=== PATIENT | male | born 1975 | race Caucasian/White ===

== ENCOUNTER 2018-01-16 21:52 | Emergency (ER) | payer SELFPAY, OTHER ==
[2018-01-17] MEDS: GASTROGRAFIN SOLUTION 30ML PO ×2 (01:20→01:50)
[2018-01-17 01:23] LABS: BASO # 0.1 10^3/uL (0.0-0.2); BASO % 0.4 % (0.0-1.0); EOS % 0.3 % (0.0-3.0); HEMATOCRIT 50.8 % (42.0-52.0); HEMOGLOBIN 17.5 g/dl (13.5-17.5); IMMATURE GRANULOCYTE % 0.3 % (0-3.0); LYMPH # 2.4 10^3/uL (1.5-4.5); LYMPH % 20.9 % (24.0-44.0); MEAN CORPUSCULAR HEMOGLOBIN 31.5 pg (27.0-33.0); MEAN CORPUSCULAR HGB CONC 34.4 g/dl (32.0-36.5); MEAN CORPUSCULAR VOLUME 91.4 fl (80.0-96.0); MONO # 1.4 10^3/uL (0.0-0.8); MONO % 12.3 % (0.0-5.0); NEUTROPHILS # 7.5 10^3/uL (1.8-7.7); NEUTROPHILS % 65.8 % (36.0-66.0); PLATELET COUNT, AUTOMATED 181 10^3/uL (150-450); RED BLOOD COUNT 5.56 10^6/uL (4.30-6.10); RED CELL DISTRIBUTION WIDTH 12.8 % (11.5-14.5); WHITE BLOOD COUNT 11.3 10^3/uL (4.0-10.0)
[2018-01-17] MEDS: ONDANSETRON 4MG/2ML VIAL (J2405) IV (01:36)
[2018-01-17 01:41] LABS: ALBUMIN 3.9 GM/DL (3.2-5.2); ALBUMIN/GLOBULIN RATIO 0.74 (1.00-1.93); ALKALINE PHOSPHATASE 79 U/L (45-117); ALT/SGPT 35 U/L (12-78); ANION GAP 6 MEQ/L (8-16); AST/SGOT 32 U/L (7-37); BILIRUBIN,DIRECT 0.4 MG/DL (0.0-0.2); BILIRUBIN,TOTAL 1.2 MG/DL (0.2-1.0); BLOOD UREA NITROGEN 7 MG/DL (7-18); CALCIUM LEVEL 9.6 MG/DL (8.5-10.1); CARBON DIOXIDE LEVEL 31 MEQ/L (21-32); CHLORIDE LEVEL 97 MEQ/L (98-107); CREATININE FOR GFR 1.16 MG/DL (0.70-1.30); GLOMERULAR FILTRATION RATE > 60.0 (>60); GLUCOSE, FASTING 102 MG/DL (70-100); LIPASE 73 U/L (73-393); POTASSIUM SERUM 3.9 MEQ/L (3.5-5.1); SODIUM LEVEL 134 MEQ/L (136-145); TOTAL PROTEIN 9.2 GM/DL (6.4-8.2)
[2018-01-17] MEDS: NS 1,000 ML IV (01:42)
[2018-01-17] MEDS: KETOROLAC 30 MG/ML VIAL (J1885) IV (01:43)
[2018-01-17 01:45] LABS: LACTIC ACID SEPSIS PROTOCOL 2.2 MMOL/L (0.4-2.0)
[2018-01-17] MEDS ORDERED: ISOVUE-370 76% 100ML VIAL (Q9967) As Ordered (02:25)
[2018-01-17] MEDS: predniSONE 20 MG TAB PO (05:17)
[2018-01-17] MEDS: METOCLOPRAMIDE INJ 10MG/2ML VIAL (J2765) IV (05:19)
== END 2018-01-17 05:30 | disposition home or self-care (01) ==
LOC: M ED 21:52
DX: K52.9 Noninfective gastroenteritis and colitis, unspecified (principal); J40 Bronchitis, not specified as acute or chronic; K50.90 Crohn's disease, unspecified, without complications; F17.210 Nicotine dependence, cigarettes, uncomplicated; Z88.8 Allergy status to other drugs, medicaments and biological substances
CPT/HCPCS: Q9963

== ENCOUNTER 2018-05-30 10:21 | Emergency (ER) | payer MEDICAID, SELFPAY ==
[2018-05-30] MEDS: CYCLOBENZAPRINE 10 MG TAB PO ×2 (10:50)
[2018-05-30] MEDS: methylPREDNISolone INJ 125 MG/2 ML VIAL (J2930) IM ×2 (10:51)
[2018-05-30] MEDS: MORPHINE 10 MG/ML 1ML VIAL (J2270) IM ×2 (10:51)
== END 2018-05-30 11:24 | disposition home or self-care (01) ==
LOC: M ED 10:21
DX: M54.42 Lumbago with sciatica, left side (principal); I10 Essential (primary) hypertension; Z87.19 Personal history of other diseases of the digestive system; Z88.8 Allergy status to other drugs, medicaments and biological substances; F17.210 Nicotine dependence, cigarettes, uncomplicated
CPT/HCPCS: J2930

== ENCOUNTER → 2018-11-01 | Outpatient (REF) | payer OTHER, MEDICAID ==
[~2018-11-01] MED LIST: CYCL10TA PO; IBUP200T45 PO; PRED20TA PO; REGL10TA6 PO; ZOFR4TAB14 PO
[2018-11-01 19:20] LABS: INR 1.13; PROTHROMBIN TIME 14.7 SECONDS (12.1-14.4)
[2018-11-02 12:08] LABS: HEPATITIS B SURFACE ANTIBODY POSITIVE (POSITIVE); HEPATITIS B SURFACE ANTIGEN NEGATIVE (NEGATIVE); HIV 1&2 SCREEN CENTAUR NEGATIVE (NEGATIVE)
[2018-11-03 08:57] LABS: HEPATITIS A IgG TOTAL Negative (Negative); HEPATITIS B CORE ANTIBODY IGG Negative (Negative)
[2018-11-07 00:06] LABS: HEPATITIS C QUANTITATION 4682320 IU/mL (.); HEPATITIS C VIRUS GENOTYPE 1a (.)
== END ==
LOC: M LAB REF 16:43
PROVIDERS: ATTEND Nurse Practitioner Adult Health
DX: B18.2 Chronic viral hepatitis C (principal)

== ENCOUNTER → 2018-11-27 | Outpatient (REF) | payer OTHER, MEDICAID ==
[2018-11-27 17:46] LABS: BASO % 0.2 % (0.0-1.0); EOS % 0.1 % (0.0-3.0); HEMATOCRIT 45.8 % (42.0-52.0); LYMPH # 2.8 10^3/uL (1.5-4.5); LYMPH % 23.7 % (24.0-44.0); MEAN CORPUSCULAR HEMOGLOBIN 31.4 pg (27.0-33.0); MEAN CORPUSCULAR HGB CONC 34.9 g/dl (32.0-36.5); MONO # 1.1 10^3/uL (0.0-0.8); NEUTROPHILS # 7.9 10^3/uL (1.8-7.7); NEUTROPHILS % 66.8 % (36.0-66.0); PLATELET COUNT, AUTOMATED 274 10^3/uL (150-450); RED BLOOD COUNT 5.09 10^6/uL (4.30-6.10); WHITE BLOOD COUNT 11.7 10^3/uL (4.0-10.0)
[2018-11-27 17:53] LABS: ALT/SGPT 36 U/L (12-78); BILIRUBIN,TOTAL 0.7 MG/DL (0.2-1.0); BLOOD UREA NITROGEN 9 MG/DL (7-18); CALCIUM LEVEL 8.9 MG/DL (8.5-10.1); CARBON DIOXIDE LEVEL 27 MEQ/L (21-32); CHLORIDE LEVEL 101 MEQ/L (98-107); CHOLESTEROL LEVEL 99 MG/DL (<200); CHOLESTEROL RISK RATIO 2.675 (<5); CREATININE FOR GFR 1.01 MG/DL (0.70-1.30); GLOMERULAR FILTRATION RATE > 60.0 (>60); GLUCOSE, FASTING 118 MG/DL (70-100); HDL CHOLESTEROL 37 MG/DL (>40); LDL CHOLESTEROL 45 MG/DL (<100); NON-HDL-C 62 MG/DL; POTASSIUM SERUM 3.5 MEQ/L (3.5-5.1); SODIUM LEVEL 137 MEQ/L (136-145); TRIGLYCERIDES LEVEL 83 MG/DL (<150)
[2018-11-27 18:08] LABS: HEMOGLOBIN A1c 5.8 %
[2018-11-27 18:32] LABS: APPEARANCE, URINE MANUAL HAZY (CLEAR); BILIRUBIN, URINE MANUAL NEGATIVE (NEGATIVE); BLOOD URINE MANUAL TRACE (NEGATIVE); COLOR, URINE MANUAL YELLOW (YELLOW); GLUCOSE, URINE (UA) MANUAL NEGATIVE (NEGATIVE); KETONE, URINE MANUAL NEGATIVE (NEGATIVE); LEUKOCYTE ESTERASE, URINE MAN NEGATIVE (NEGATIVE); NITRITE, URINE MANUAL NEGATIVE (NEGATIVE); PROTEIN, URINE MANUAL NEGATIVE (NEGATIVE); SPECIFIC GRAVITY,URINE MANUAL 1.025 (1.002-1.035); UROBILINOGEN, URINE MANUAL NORMAL (NORMAL)
[2018-11-27 18:43] LABS: WBC, URINE 0-1 /hpf (0-3)
[2018-11-27 18:44] LABS: AMORPHOUS SEDIMENT, URINE MOD AMOUNT (NEGATIVE); BACTERIA, URINE MOD AMOUNT; CALCIUM OXALATE CRYSTALS,URINE MOD AMOUNT /hpf; HYALINE CAST, URINE NONE SEEN /lpf (0-1); SQUAMOUS EPITHELIAL CELL URINE 0 /hpf (SMALL AMT)
== END ==
LOC: M LAB REF 16:42
PROVIDERS: ATTEND Nurse Practitioner Adult Health
DX: B18.2 Chronic viral hepatitis C (principal)

== ENCOUNTER → 2019-02-18 | Outpatient (REF) | payer OTHER, MEDICAID ==
[2019-02-20 14:34] LABS: HEPATITIS C QUANTITATION 20 IU/mL (.)
== END ==
LOC: M LAB REF 13:15
PROVIDERS: ATTEND Nurse Practitioner Adult Health
DX: B18.2 Chronic viral hepatitis C (principal)

== ENCOUNTER → 2019-03-19 | Outpatient (CLI) | payer OTHER, MEDICAID ==
--- NOTE | 2019-03-19 18:59 | REP ---
Clinical: Chest pain. Acute bronchitis. Technique: PA and lateral. Comparison: 01/16/2018. Findings: Mediastinum and cardiac silhouette normal. Moderate COPD and emphysematous changes are again noted. No focal consolidation, effusion, or pneumothorax. Skeletal structures intact. Impression: Chronic COPD/emphysematous changes. Electronically Signed by Kenneth Diggs MD 03/19/2019 06:51 P
== END ==
LOC: M WUC 18:35
PROVIDERS: ATTEND Physician Assistant
DX: J44.9 Chronic obstructive pulmonary disease, unspecified (principal); J20.9 Acute bronchitis, unspecified; R06.02 Shortness of breath; Z72.0 Tobacco use

== ENCOUNTER → 2019-03-28 | Outpatient (REF) | payer OTHER, MEDICAID ==
[2019-04-01 14:06] LABS: HEPATITIS C QUANTITATION HCV Not Detected IU/mL (.)
== END ==
LOC: M LAB REF 12:44
PROVIDERS: ATTEND Nurse Practitioner Adult Health
DX: B18.2 Chronic viral hepatitis C (principal)

== ENCOUNTER → 2019-05-07 | Outpatient (REF) | payer OTHER, MEDICAID | LOC: M LAB REF 10:31 | PROVIDERS: ATTEND Physician Assistant | DX: J20.9 Acute bronchitis, unspecified (principal) ==

== ENCOUNTER → 2019-06-17 | Outpatient (REF) | payer OTHER, MEDICAID ==
[2019-06-17 13:24] LABS: ALBUMIN 3.8 GM/DL (3.2-5.2); ALT/SGPT 13 U/L (12-78); BILIRUBIN,TOTAL 0.6 MG/DL (0.2-1.0); BLOOD UREA NITROGEN 7 MG/DL (7-18); CALCIUM LEVEL 9.3 MG/DL (8.5-10.1); CARBON DIOXIDE LEVEL 31 MEQ/L (21-32); CHLORIDE LEVEL 104 MEQ/L (98-107); CREATININE FOR GFR 1.11 MG/DL (0.70-1.30); GLOMERULAR FILTRATION RATE > 60.0 (>60); GLUCOSE, FASTING 96 MG/DL (70-100); POTASSIUM SERUM 4.5 MEQ/L (3.5-5.1); SODIUM LEVEL 139 MEQ/L (136-145); TOTAL PROTEIN 7.6 GM/DL (6.4-8.2)
[2019-06-17 13:44] LABS: HEMOGLOBIN A1c 5.7 %
== END ==
LOC: M LAB REF 12:24
PROVIDERS: ATTEND Family Medicine
DX: R73.03 Prediabetes (principal)

== ENCOUNTER → 2020-05-16 | Outpatient (CLI) | payer OTHER, MEDICAID ==
[~2020-05-16] MED LIST changes: +CYCL-707 PO; -CYCL10TA PO
--- NOTE | 2020-06-03 11:43 | REP ---
RIGHT KNEE SERIES HISTORY: Injury with pain. TECHNIQUE: Five views of the right knee are performed. FINDINGS: There is no evidence of acute fracture, dislocation, or intrinsic bone disease. I do not see a significant joint effusion. IMPRESSION: Negative right knee series. MTDD
== END ==
LOC: M WUC 16:28
PROVIDERS: ATTEND Physician Assistant
DX: M25.561 Pain in right knee (principal)

== ENCOUNTER 2021-01-08 14:05 | Emergency (ER) | payer OTHER ==
[~2021-01-08] VITALS: Ht 177.8 cm; Wt 64.0 kg
[2021-01-08] MEDS ORDERED: ARNU1INH3 (14:13)
[2021-01-08] MEDS ORDERED: ALBU8.5H (14:13)
[2021-01-08] MEDS ORDERED: STIO1AER (14:13)
--- NOTE | 2021-01-08 14:36 | REP ---
INDICATION: crush injury. COMPARISON: None. TECHNIQUE: Four views FINDINGS: No acute fracture or destructive osseous lesion. IMPRESSION: No acute abnormality <Electronically signed by Esvin Low > 01/08/21 [id number]
[2021-01-08] MEDS ORDERED: LIDOCAINE 1% MDV 20ML VIAL SC ONE (15:30)
[2021-01-08 16:44] VITALS: BP 136/78
== END 2021-01-08 16:43 | disposition home or self-care (01) ==
LOC: M ED 14:05
DX: S61.011A Laceration without foreign body of right thumb without damage to nail, initial encounter (principal); W23.1XXA Caught, crushed, jammed, or pinched between stationary objects, initial encounter; Y92.9 Unspecified place or not applicable; Y93.9 Activity, unspecified; Y99.0 Civilian activity done for income or pay

== ENCOUNTER 2021-01-30 21:13 | Emergency (ER) | payer OTHER ==
[~2021-01-30] VITALS: Ht 180.3 cm; Wt 64.5 kg
[~2021-01-30 21:13] MED LIST changes: +ALBU8.5H; +ARNU1INH3; +STIO1AER
[2021-01-30 21:14] VITALS: BP 130/81
== END 2021-01-30 23:23 | disposition left against medical advice (07) ==
LOC: M ED 21:13
DX: Z53.21 Procedure and treatment not carried out due to patient leaving prior to being seen by health care provider (principal)

== ENCOUNTER → 2022-04-26 | Outpatient (REF) | payer OTHER ==
[~2022-04-26] MED LIST changes: -IBUP200T45 PO; +IBUP200T46 PO
== END ==
LOC: M SFHCDERM 12:47
PROVIDERS: ATTEND Nurse Practitioner Family
DX: L57.0 Actinic keratosis (principal)

== ENCOUNTER → 2022-07-04 | Outpatient (CLI) | payer OTHER ==
[2022-07-04 12:41] LABS: BASO % 0.2 % (0.0-1.0); EOS # 0.1 10^3/uL (0.0-0.5); HEMATOCRIT 45.7 % (42.0-52.0); HEMOGLOBIN 14.6 g/dl (13.5-17.5); LYMPH % 24.6 % (24.0-44.0); MEAN CORPUSCULAR HEMOGLOBIN 30.7 pg (27.0-33.0); MEAN CORPUSCULAR HGB CONC 31.9 g/dl (32.0-36.5); MONO # 0.8 10^3/uL (0.0-0.8); MONO % 9.9 % (2.0-8.0); NEUTROPHILS # 5.3 10^3/uL (1.5-8.5); NEUTROPHILS % 63.9 % (36.0-66.0); PLATELET COUNT, AUTOMATED 268 10^3/uL (150-450); RED BLOOD COUNT 4.76 10^6/uL (4.30-6.10); WHITE BLOOD COUNT 8.2 10^3/uL (4.0-10.0)
[2022-07-04 13:10] LABS: ALBUMIN 3.7 GM/DL (3.2-5.2); ALT/SGPT 15 U/L (12-78); BILIRUBIN,TOTAL 0.5 MG/DL (0.2-1.0); BLOOD UREA NITROGEN 10 MG/DL (7-18); CALCIUM LEVEL 9.4 MG/DL (8.5-10.1); CARBON DIOXIDE LEVEL 29 MEQ/L (21-32); CHLORIDE LEVEL 103 MEQ/L (98-107); CREATININE FOR GFR 1.06 MG/DL (0.70-1.30); GLOMERULAR FILTRATION RATE > 60.0 (>60); GLUCOSE, FASTING 107 MG/DL (70-100); POTASSIUM SERUM 4.7 MEQ/L (3.5-5.1); SODIUM LEVEL 136 MEQ/L (136-145); TOTAL PROTEIN 7.2 GM/DL (6.4-8.2)
[2022-07-04 14:29] LABS: VITAMIN B12 LEVEL 263 PG/ML (247-911)
[2022-07-04 14:39] LABS: HEPATITIS B SURFACE ANTIGEN NEGATIVE (NEGATIVE)
== END ==
LOC: M LAB 11:08
PROVIDERS: ATTEND Internal Medicine Gastroenterology
DX: K50.018 Crohn's disease of small intestine with other complication (principal)

== ENCOUNTER 2022-07-25 09:03 | Day surgery (SDC) | payer OTHER ==
[~2022-07-25] VITALS: Ht 177.8 cm; Wt 59.9 kg
[~2022-07-25 09:03] MED LIST changes: +NS 1,000 ML IV ONE
[2022-07-25 11:30] VITALS: BP 122/74
[2022-07-25] MEDS ORDERED: propofoL 200 MG/20 ML VIAL As Ordered ONE (11:58)
== END 2022-07-25 11:56 | disposition home or self-care (01) ==
LOC: M OPP 09:03
PROVIDERS: ATTEND Internal Medicine Gastroenterology
DX: K50.00 Crohn's disease of small intestine without complications (principal); K52.9 Noninfective gastroenteritis and colitis, unspecified; K64.8 Other hemorrhoids; K91.89 Other postprocedural complications and disorders of digestive system; J44.9 Chronic obstructive pulmonary disease, unspecified; F17.210 Nicotine dependence, cigarettes, uncomplicated; Z88.8 Allergy status to other drugs, medicaments and biological substances; Z79.51 Long term (current) use of inhaled steroids; Z79.899 Other long term (current) drug therapy

== ENCOUNTER 2022-08-29 13:19 | Outpatient (CLI) | payer OTHER ==
[~2022-08-29] VITALS: Ht 177.8 cm; Wt 61.3 kg
[~2022-08-29 13:19] MED LIST changes: -NS 1,000 ML IV ONE
[2022-08-29 13:30] VITALS: BP 135/82
[2022-08-29] MEDS ORDERED: VEDOLIZUMAB 300 MG in NS 250 ML IV ONE (13:30)
[2022-08-29 15:02] VITALS: BP 146/84
== END 2022-08-29 15:00 | disposition home or self-care (01) ==
LOC: M INFU 13:19
PROVIDERS: ATTEND Internal Medicine Gastroenterology
DX: K50.90 Crohn's disease, unspecified, without complications (principal); Z88.8 Allergy status to other drugs, medicaments and biological substances
CPT/HCPCS: 96365; J3380

== ENCOUNTER 2022-09-12 13:20 | Outpatient (CLI) | payer OTHER ==
[~2022-09-12] VITALS: Ht 177.8 cm; Wt 62.4 kg
[2022-09-12 13:20] VITALS: BP 145/75
[2022-09-12] MEDS ORDERED: VEDOLIZUMAB 300 MG in NS 250 ML IV ONE (13:30)
[2022-09-12 14:40] VITALS: BP 129/68
== END 2022-09-12 14:40 | disposition home or self-care (01) ==
LOC: M INFU 13:20
PROVIDERS: ATTEND Internal Medicine Gastroenterology
DX: K50.90 Crohn's disease, unspecified, without complications (principal); Z88.8 Allergy status to other drugs, medicaments and biological substances
CPT/HCPCS: 96365; J3380

== ENCOUNTER 2022-10-10 13:15 | Outpatient (CLI) | payer OTHER, SELFPAY ==
[~2022-10-10] VITALS: Ht 177.8 cm; Wt 62.4 kg
[2022-10-10 13:15] VITALS: BP 145/78
[~2022-10-10 13:15] MED LIST changes: +VEDOLIZUMAB 300 MG in NS 250 ML IV ONE
[2022-10-10 14:20] VITALS: BP 137/88
== END 2022-10-10 14:20 | disposition home or self-care (01) ==
LOC: M INFU 13:15
PROVIDERS: ATTEND Internal Medicine Gastroenterology
DX: K50.90 Crohn's disease, unspecified, without complications (principal); Z88.8 Allergy status to other drugs, medicaments and biological substances
CPT/HCPCS: 96365; J3380

== ENCOUNTER 2022-12-06 14:20 | Outpatient (CLI) | payer OTHER ==
[~2022-12-06] VITALS: Ht 177.8 cm; Wt 62.0 kg
[2022-12-06 14:15] VITALS: BP 138/67
[~2022-12-06 14:20] MED LIST changes: -VEDOLIZUMAB 300 MG in NS 250 ML IV ONE
[2022-12-06 14:23] VITALS: BP 138/67
[2022-12-06] MEDS ORDERED: VEDOLIZUMAB 300 MG in NS 250 ML IV ONE (14:30)
[2022-12-06 15:00] VITALS: BP 130/83
== END 2022-12-06 15:25 | disposition home or self-care (01) ==
LOC: M INFU 14:20
PROVIDERS: ATTEND Internal Medicine Gastroenterology
DX: K50.90 Crohn's disease, unspecified, without complications (principal); Z88.8 Allergy status to other drugs, medicaments and biological substances
CPT/HCPCS: 96365; J3380

== ENCOUNTER 2023-01-30 13:00 | Outpatient (CLI) | payer MEDICAID, OTHER ==
[~2023-01-30] VITALS: Ht 177.8 cm; Wt 62.4 kg
[~2023-01-30 13:00] MED LIST changes: +VEDOLIZUMAB 300 MG in NS 250 ML IV ONE
[2023-01-30 13:10] VITALS: BP 134/86; O2SAT 95
[2023-01-30 14:18] VITALS: BP 142/87; O2SAT 97
== END 2023-01-30 14:20 | disposition home or self-care (01) ==
LOC: M INFU 13:00
PROVIDERS: ATTEND Internal Medicine Gastroenterology
DX: K50.90 Crohn's disease, unspecified, without complications (principal); Z88.8 Allergy status to other drugs, medicaments and biological substances
CPT/HCPCS: 96365; J3380

== ENCOUNTER 2023-03-27 12:55 | Outpatient (CLI) | payer OTHER ==
[~2023-03-27] VITALS: Ht 177.8 cm; Wt 63.2 kg
[2023-03-27 12:55] VITALS: BP 133/81; O2SAT 99
[~2023-03-27 12:55] MED LIST changes: -VEDOLIZUMAB 300 MG in NS 250 ML IV ONE
[2023-03-27] MEDS ORDERED: VEDOLIZUMAB 300 MG in NS 250 ML IV ONE (13:00)
[2023-03-27 14:15] VITALS: BP 140/90; O2SAT 97
== END 2023-03-27 14:15 ==
LOC: M INFU 12:55
PROVIDERS: ATTEND Internal Medicine Gastroenterology
DX: K50.90 Crohn's disease, unspecified, without complications (principal); Z88.8 Allergy status to other drugs, medicaments and biological substances
CPT/HCPCS: 96365; J3380

== ENCOUNTER 2023-05-22 13:05 | Outpatient (CLI) | payer OTHER ==
[~2023-05-22] VITALS: Ht 177.8 cm; Wt 61.3 kg
[2023-05-22 13:05] VITALS: BP 139/83; O2SAT 98
[~2023-05-22 13:05] MED LIST changes: +VEDOLIZUMAB 300 MG in NS 250 ML IV ONE
[2023-05-22 14:20] VITALS: BP 136/80; O2SAT 98
== END 2023-05-22 14:20 | disposition home or self-care (01) ==
LOC: M INFU 13:05
PROVIDERS: ATTEND Internal Medicine Gastroenterology
DX: K50.90 Crohn's disease, unspecified, without complications (principal); Z88.8 Allergy status to other drugs, medicaments and biological substances
CPT/HCPCS: 96365; J3380

== ENCOUNTER 2023-07-17 13:00 | Outpatient (CLI) | payer OTHER ==
[~2023-07-17] VITALS: Ht 177.8 cm; Wt 61.4 kg
[2023-07-17 13:00] VITALS: BP 147/86; O2SAT 99
[2023-07-17 13:25] VITALS: BP 138/88; O2SAT 99
[2023-07-17 14:25] VITALS: BP 138/88; O2SAT 99
== END 2023-07-17 14:25 ==
LOC: M INFU 13:00
PROVIDERS: ATTEND Internal Medicine Gastroenterology
DX: K50.90 Crohn's disease, unspecified, without complications (principal); Z88.8 Allergy status to other drugs, medicaments and biological substances
CPT/HCPCS: 96365; J3380

== ENCOUNTER → 2023-08-22 | Outpatient (REF) | payer OTHER ==
[~2023-08-22] MED LIST changes: -VEDOLIZUMAB 300 MG in NS 250 ML IV ONE
== END ==
LOC: M LAB REF 16:36
PROVIDERS: ATTEND Internal Medicine Gastroenterology
DX: K50.018 Crohn's disease of small intestine with other complication (principal)

== ENCOUNTER 2023-09-11 12:45 | Outpatient (CLI) | payer OTHER ==
[~2023-09-11] VITALS: Ht 177.8 cm; Wt 66.0 kg
[2023-09-11 13:23] VITALS: BP 144/80; O2SAT 98
[2023-09-11] MEDS ORDERED: VEDOLIZUMAB 300 MG in NS 250 ML IV ONE (13:30)
[2023-09-11 14:45] VITALS: BP 118/60; O2SAT 98
== END 2023-09-11 14:45 | disposition home or self-care (01) ==
LOC: M INFU 12:45
PROVIDERS: ATTEND Internal Medicine Gastroenterology
DX: K50.90 Crohn's disease, unspecified, without complications (principal); Z88.8 Allergy status to other drugs, medicaments and biological substances
CPT/HCPCS: 96365; J3380

== ENCOUNTER 2023-11-06 13:05 | Outpatient (CLI) | payer OTHER ==
[~2023-11-06] VITALS: Ht 177.8 cm; Wt 66.0 kg
[2023-11-06 13:05] VITALS: BP 143/86; O2SAT 97
[2023-11-06] MEDS: VEDOLIZUMAB 300 MG in NS 250 ML IV ONE (13:50)
[2023-11-06 14:30] VITALS: BP 135/75; O2SAT 96
== END 2023-11-06 14:30 ==
LOC: M INFU 13:05
PROVIDERS: ATTEND Internal Medicine Gastroenterology
DX: K50.919 Crohn's disease, unspecified, with unspecified complications (principal); Z88.8 Allergy status to other drugs, medicaments and biological substances
CPT/HCPCS: 96365; J3380

== ENCOUNTER → 2024-09-26 | Outpatient (CLI) | payer BC | LOC: M RAD 14:30 | PROVIDERS: ATTEND Physician Assistant | DX: Z12.2 Encounter for screening for malignant neoplasm of respiratory organs (principal); F17.218 Nicotine dependence, cigarettes, with other nicotine-induced disorders ==